=== PATIENT | male | born 1975 | race American Indian/Alaskan Native ===

== ENCOUNTER 2021-03-18 11:54 | Day surgery (SDC) | payer BC ==
[~2021-03-18 11:54] MED LIST: MIDAZOLAM 2 MG/2 ML INJ IV NR; SODIUM CHLORIDE 0.9% 1000 ML 1,000 ML IV SCH
[2021-03-18 12:59] LABS: Hematocrit 29.7 % (35.5-45.6); Hemoglobin 9.8 gm/dl (11.8-15.2); Mean Corpuscular HGB Conc 33 % (32-34); Mean Corpuscular Volume 93 fl (84-94); Platelet Count 255 K/mm3 (140-440); Red Cell Distribution Width 15.7 % (13.2-15.2)
[2021-03-18] MEDS ORDERED: ceFAZolin/STERILE WATER 2 GM/20 ML SYRINGE IV NR (13:00)
[2021-03-18] MEDS ORDERED: HEPARIN 10,000 UNITS/10 ML VIAL ONE (13:22)
[2021-03-18] MEDS ORDERED: PROTAMINE SULFATE 50 MG/5 ML INJ ONE (13:22)
[2021-03-18] MEDS ORDERED: SODIUM CHLORIDE 0.9% 250ML 250 ML ONE (13:22)
[2021-03-18] MEDS ORDERED: LIDOCAINE 1%/EPINEPHRINE 1:100,000 VIAL (20 ML) INFILTRATI ONE (13:22)
[2021-03-18] MEDS ORDERED: THROMBIN (RECOMBINANT) 5,000 UNIT VIAL TP ONE (13:22)
[2021-03-18] MEDS ORDERED: BUPIVACAINE/PF (0.25%) 2.5 MG/ML 30 ML VIAL INFILTRATI ONE (13:22)
[2021-03-18] MEDS ORDERED: SODIUM CHLORIDE 0.9% 500 ML 500 ML ONE (13:23)
[2021-03-18] MEDS ORDERED: fentaNYL 100 MCG/2 ML INJ IV PRN (13:38)
[2021-03-18] MEDS ORDERED: ONDANSETRON 4 MG/2 ML INJ IV PRN (13:38)
[2021-03-18] MEDS ORDERED: HYDROcodone/ACETAMINOPHEN 5-325 MG TAB PO PRN (13:38)
--- NOTE | 2021-03-18 13:38 | Anesthesia Consultation ---
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
--- NOTE | 2021-03-18 13:38 | Anesthesia Day of Surgery ---
Anesthesia Day of Surgery - Day of Surgery Patient Examined: Yes Patient H&P Reviewed: Yes Patient is NPO: Yes Beta Blockers: Yes
[2021-03-18 13:44] LABS: Calcium 9.7 mg/dL (8.4-10.2)
[2021-03-18] MEDS ORDERED: propofoL 200 MG/20 ML VIAL IV ONE (13:58)
[2021-03-18] MEDS ORDERED: LIDOCAINE MPF (2%) 20 MG/1 ML VIAL 5 ML ONE (13:58)
[2021-03-18] MEDS ORDERED: fentaNYL 100 MCG/2 ML INJ ONE (14:04)
[2021-03-18] MEDS ORDERED: ePHEDrine SULFATE 50 MG/1 ML INJ ONE (14:14)
[2021-03-18] MEDS ORDERED: KETAMINE/STERILE WATER 50 MG/ML SYRINGE ONE (14:30)
[2021-03-18] MEDS ORDERED: SODIUM CHLORIDE 0.9% IRR 1,000 ML BOTTLE IR ONE (14:38)
[2021-03-18] MEDS ORDERED: HEPARIN 5,000 UNIT in SODIUM CHLORIDE 0.9% 500 ML 500 ML IR ONE (14:39)
[2021-03-18] MEDS ORDERED: PHENYLEPHRINE/NS 1,000 MCG/10 ML SYRINGE (OR USE) IV ONE (15:07)
[2021-03-18] MEDS ORDERED: ONDANSETRON 4 MG/2 ML INJ ONE (15:30)
[2021-03-18] MEDS ORDERED: dexAMETHasone 20 MG/5 ML VIAL ONE (15:30)
--- NOTE | 2021-03-18 15:47 | Post Operative Note ---
Date of procedure: 03/18/21 Pre-op diagnosis: ESRD Post-op diagnosis: same Procedure: Left Arm AV Graft Insertion Anesthesia: GETA Surgeon: NORY PARKINSON Estimated blood loss: other (25ml) Pathology: none Condition: stable Disposition: PACU
--- NOTE | 2021-03-18 15:49 | Short Stay Summary ---
Short Stay Documentation Date of service: 03/18/21 - History H&P: obtained from office Past Medical History: ESRD, hypertension - Allergies and Medications Current Medications: Allergies No Known Allergies Allergy (Verified 03/12/21 14:20) Home Medications Medication Instructions Recorded Confirmed Last Taken Type Amlodipine Besylate 10 mg PO DAILY 03/12/21 03/12/21 03/18/21 09:00 History Furosemide [Lasix] 40 mg PO PRN PRN 03/12/21 03/18/21 03/16/21 History carvediloL [Coreg] 25 mg PO BID 03/12/21 03/12/21 03/18/21 09:00 History hydrALAZINE [Apresoline TAB] 100 mg PO BID 03/12/21 03/12/21 03/18/21 09:00 History Active Medications Hydrocodone Bitart/Acetaminophen (Hydrocodone/Acetaminophen 5-325 Mg Tab) 2 each PO ONCE PRN PRN Reason: Pain, Moderate (4-6) Cefazolin Sodium (Cefazolin/Sterile Water 2 Gm/20 Ml Syringe) 2 gm IV PREOP NR Stop: 03/18/21 23:59 Fentanyl (Fentanyl 100 Mcg/2 Ml Inj) 50 mcg IV Q5MIN PRN PRN Reason: Pain , Severe (7-10) Sodium Chloride (Nacl 0.9% 1000 Ml) 1,000 mls @ 42 mls/hr IV DIRECT ALVIN Stop: 03/18/21 23:59 Last Admin: 03/18/21 13:32 Dose: 42 mls/hr Documented by: Midazolam HCl (Midazolam 2 Mg/2 Ml Inj) 2 mg IV PREOP NR Stop: 03/18/21 20:00 Last Admin: 03/18/21 13:50 Dose: 2 mg Documented by: Ondansetron HCl (Ondansetron 4 Mg/2 Ml Inj) 4 mg IV ONCE PRN PRN Reason: Nausea And Vomiting - Physical exam General appearance: no acute distress Lungs: Normal air movement Heart: Regular rate Extremities: no ischemia - Hospital course Hospital course: the patient was taken to the operating room and had a left arm av graft insertion performed. please refer to the operative note concerning details of the procedure. the patient tolerated the procedure well and was discharged home in stable condition. - Disposition Condition at discharge: Stable Disposition: 01 HOME / SELF CARE / HOMELESS Short Stay Discharge Plan Follow up with: DAVE ROSS [Other] - 7 Days
[2021-03-18] MEDS ORDERED: oxyCODONE /ACETAMINOPHEN 5-325MG TAB PO PRN (15:50)
[2021-03-18] MEDS ORDERED: PHENYLEPHRINE 10 MG/1 ML INJ SDV ONE (15:51)
[2021-03-18] MEDS ORDERED: SODIUM CHLORIDE 0.9% 100 ML ONE (15:51)
[2021-03-18] MEDS ORDERED: HEPARIN 10,000 UNIT/1 ML VIAL ONE (16:17)
--- NOTE | 2021-03-18 16:25 | Operative Report ---
DATE OF SURGERY: 03/18/2021 STAFF SURGEON: Dr. David Jade. PREOPERATIVE DIAGNOSIS: End-stage renal disease. POSTOPERATIVE DIAGNOSIS: End-stage renal disease. PROCEDURE PERFORMED: Left arm AV graft insertion. COMPLICATIONS: None. ESTIMATED BLOOD LOSS: 25 mL. ANESTHESIA: General. INDICATIONS FOR PROCEDURE: This is a 46-year-old gentleman with end-stage renal disease, on hemodialysis via right IJ PermCath, in need of upper extremity access. The patient did not have any suitable veins for fistula creation and was slated to undergo AV graft insertion. The patient was explained all the risks, benefits, and alternatives of procedure, expressed understanding and wished to proceed. DESCRIPTION OF PROCEDURE: After appropriate consent was obtained, the patient was brought back to the operating room and placed on operating table in supine position with left arm extended. The patient was given appropriate medication for general anesthesia, had LMA placed without difficulty. The left arm was prepped and draped in the usual sterile fashion with ChloraPrep. Appropriate preoperative antibiotics were administered. Appropriate timeout was performed, indicating correct patient, procedure, and site of the procedure. We then began the operation by making a longitudinal incision near the antecubital fossa. This was carried through subcutaneous tissue with combination of blunt dissection and electrocautery. Dissection was continued through the bicep aponeurosis and allowed us to expose the brachial artery, which was found to be suitable for arterial inflow. This was exposed both proximally and distally for appropriate distance. We then turned our attention to the axilla and made a transverse incision, continued our dissection through the subcutaneous tissue with combination of blunt dissection and electrocautery. Dissection was continued through the fascia overlying the axillary neurovascular bundle. Axillary vein was identified and found to be suitable for venous outflow and was mobilized for appropriate distance both proximally and distally. We then created a subcutaneous tunnel between 2 incision sites, bringing through a 4-7-mm Propaten graft. We then proceeded to administer 5000 units of unfractionated heparin. After appropriate timeout elapsed, vascular clamps were placed on the brachial artery both proximally and distally. Cap graft was appropriately spatulated. A longitudinal arteriotomy was made with 11 blade, extended with Givens scissors. An end-to-side anastomosis was performed with a running 6-0 Prolene suture. Once complete, flow was established through the graft with a nice pulsatile flow, graft was then cut to appropriate length, spatulated. Vascular clamps were placed on the axillary vein both proximally and distally. Longitudinal venotomy was made with 11 blade, extended with Givens scissors. Then, end-to-side anastomosis was performed with a running 5-0 Prolene suture. Once complete, flow was established through the graft, had a nice palpable thrill. We looked to obtain hemostasis along the suture lines, which was obtained with hemostatic agents. Once we were satisfied with hemostasis, then proceeded to close both wounds with deep subcutaneous layer with interrupted 3-0 PDS and skin was approximated with akila. Appropriate dressings were placed. The patient tolerated the procedure well, emerged from the general anesthesia, had LMA removed, and was sent to recovery in stable condition. All sponge, instrument, and needle counts were correct at completion of the operation. TID: [id number] RECEIPT: [id number] LEONEL/HALEIGH
[2021-03-18] MEDS ORDERED: HEPARIN 10,000 UNIT/1 ML VIAL IV ONE (16:51)
--- NOTE | 2021-03-18 16:52 | Post Anesthesia Evaluation ---
- Post Anesthesia Evaluation Patient Participated: Yes Airway Patent: Yes Stable Respiratory Function: Yes Nausea/Vomiting: No Temp > 96.8F: Yes Pain Manageable: Yes Adequeate Hydration: Yes Anesthesia Complications: No
[2021-03-18 19:28] VITALS: BP 142/67
== END 2021-03-18 11:55 | disposition home or self-care (01) ==
LOC: OR 11:54
PROVIDERS: ATTEND Surgery Vascular Surgery
DX: I12.0 Hypertensive chronic kidney disease with stage 5 chronic kidney disease or end stage renal disease (principal); N18.6 End stage renal disease; Z20.822 Contact with and (suspected) exposure to COVID-19; E66.9 Obesity, unspecified; Z68.34 Body mass index [BMI] 34.0-34.9, adult; Z86.73 Personal history of transient ischemic attack (TIA), and cerebral infarction without residual deficits; Z79.899 Other long term (current) drug therapy; Z98.890 Other specified postprocedural states
CPT/HCPCS: 36415; 36830; 80048; 85027; C1768; J0690; J1100; J1644; J2250; J2370; J2405; J2704; J2720; J3010; J3490; J7030; J7040; J7050; J7120; U0003